=== PATIENT | male | born 1950 | race Caucasian/White ===

== ENCOUNTER 2021-01-19 08:48 | Observation (INO) ==
[2021-01-19] MEDS ORDERED: Isovue-370 500 ML BOTTLE IVP ONE (09:12)
[2021-01-19 09:40] LABS: Basophils % 0.5 %; Eosinophils # 0.1 K/mcL (0.0-0.6); Eosinophils % 1.2 %; Hematocrit 48.3 % (37.5-50.1); Hemoglobin 15.6 g/dL (12.9-16.9); Immature Granulocytes % 0.5 % (0-4); Lymphocytes # 1.4 K/mcL (0.6-4.6); Mean Corpuscular HGB Conc 32.3 g/dL (31.6-35.5); Mean Corpuscular Hemoglobin 28.2 pg (28.0-33.3); Mean Corpuscular Volume 87.2 fL (83.0-100.0); Monocytes # 0.3 K/mcL (0.0-1.3); Monocytes % 4.8 %; Neutrophils # 4.6 K/mcL (1.6-8.9); Platelet Count 185 K/mcL (140-400); Red Blood Count 5.54 M/mcL (4.19-5.50); Red Cell Distribution Width 13.4 % (11.5-14.5); White Blood Count 6.4 K/mcL (4.3-11.1)
[2021-01-19 09:47] LABS: Prothrombin Time 11.4 Seconds (9.4-12.1)
[2021-01-19 09:59] LABS: BUN/Creatinine Ratio 14 (6-26); Blood Urea Nitrogen 15 mg/dL (8-23); Calcium 9.7 mg/dL (8.6-10.3); Carbon Dioxide 27 mEq/L (23-29); Chloride 106 mEq/L (98-107); Glucose 115 mg/dL (70-105); Osmolality,Calculated 292 (280-300); Potassium 4.2 mEq/L (3.5-5.1); Sodium 140 mEq/L (136-145); eGFR For African Americans > 60 (> 60); eGFR For Non-African Americans > 60 (> 60)
[2021-01-19] MEDS ORDERED: Acetaminophen 325 MG TABLET PO PRN (11:41)
[2021-01-19] MEDS ORDERED: Ondansetron ODT 4 MG TAB.RAPDIS SL PRN (11:41)
[2021-01-19] MEDS ORDERED: Naloxone 0.4 MG/ML INJ IVP PRN (11:41)
[2021-01-19] MEDS ORDERED: Ringers Solution, Lactated 1,000 ML IVC SCH (11:45)
[2021-01-19] MEDS: Carbidopa/Levodopa 25/100 TABLET PO SCH ×2 (15:07→21:02)
[2021-01-20 02:19] LABS: Hematocrit 43.6 % (37.5-50.1); Hemoglobin 14.3 g/dL (12.9-16.9); Mean Corpuscular HGB Conc 32.8 g/dL (31.6-35.5); Mean Corpuscular Hemoglobin 28.5 pg (28.0-33.3); Platelet Count 182 K/mcL (140-400); Red Blood Count 5.01 M/mcL (4.19-5.50); Red Cell Distribution Width 13.3 % (11.5-14.5); White Blood Count 8.7 K/mcL (4.3-11.1)
[2021-01-20 02:35] LABS: BUN/Creatinine Ratio 18 (6-26); Blood Urea Nitrogen 18 mg/dL (8-23); Calcium 9.1 mg/dL (8.6-10.3); Carbon Dioxide 24 mEq/L (23-29); Chloride 108 mEq/L (98-107); Glucose 109 mg/dL (70-105); Magnesium 2.2 mg/dL (1.6-2.6); Osmolality,Calculated 294 (280-300); Potassium 3.7 mEq/L (3.5-5.1); Sodium 141 mEq/L (136-145); eGFR For African Americans > 60 (> 60); eGFR For Non-African Americans > 60 (> 60)
[2021-01-20 07:38] VITALS: BP 148/79
[2021-01-20] MEDS: Carbidopa/Levodopa 25/100 TABLET PO SCH (07:54)
[2021-01-20] MEDS ORDERED: lisinopriL 10 MG TABLET PO SCH (09:00)
[2021-01-20] MEDS ORDERED: Aspirin Enteric Coated 81 MG Tablet PO SCH (09:00)
[2021-01-20] MEDS ORDERED: Sennosides/Docusate Sodium TABLET PO SCH (09:00)
== END 2021-01-20 11:34 | disposition home or self-care (01) ==
LOC: 3ANU 08:48 → EMEROOARM 08:48 → 3ANU 13:20
PROVIDERS: ADMIT Internal Medicine; ATTEND Internal Medicine